=== PATIENT | female | born 1990 | race Two or more races ===

== ENCOUNTER 2017-07-21 10:14 | Emergency (ER) | payer MEDICAID ==
[~2017-07-21] VITALS: Ht 177.8 cm; Wt 146.1 kg
[2017-07-21 11:20] LABS: HCG UR OBC PASS
[2017-07-21] MEDS ORDERED: FLUCONAZOLE 100 MG TABLET PO ONE (13:00)
[2017-07-21 13:07] VITALS: BP 133/79
== END 2017-07-21 13:16 | disposition home or self-care (01) ==
LOC: ED 13:10
DX: B37.3 Candidiasis of vulva and vagina (principal); N30.00 Acute cystitis without hematuria
CPT/HCPCS: 81001; 81025; 87077; 87086; 87147; 87186; 87210; 87491; 87591; 87808; 99284